=== PATIENT | male | born 1960 | race Caucasian/White ===

== ENCOUNTER → 2017-11-30 | Outpatient (CLI) | payer BC ==
--- NOTE | 2017-11-30 11:37 | KCIC ---
EXAM: MRI LEFT KNEE DATE: 11/30/2017 9:30 AM CLINICAL INDICATION: Medial left knee pain COMPARISON: None. TECHNIQUE: Multiplanar multisequence MR imaging of the left knee was performed without IV contrast. FINDINGS: Moderate left knee joint effusion. Small Mirza's cyst with edema extending inferiorly along the leg likely recent partial rupture. The ACL is intact. The PCL is intact. Moderate edema is seen about the MCL likely low-grade sprain or reactive from adjacent meniscal tear. The fibular collateral ligament, biceps femoris and IT band are intact. The popliteus tendon is normal in signal and morphology. Extensor mechanism is intact. Neutral patellar tracking. Medial meniscus: There is a radial tear at the body segment of the medial meniscus. Lateral meniscus: The lateral meniscus is intact. Full-thickness cartilage defect is seen at the weightbearing surface of the medial femoral condyle and medial tibial plateau measuring 7-8 mm in transverse dimension. Associated subchondral edema is seen within the medial femoral condyle and tibial plateau. Intermittent fissuring is seen within the patellar apex and lateral trochlea with small foci of subchondral edema. No fracture or AVN. Subchondral marrow edema is seen at the fibular head, suspect degenerative change although the cartilage is not well profiled. IMPRESSION: 1. Radial tear at the body of the medial meniscus. 2. Associated medial compartment degenerative changes chondral effacement and subchondral edema is seen. 3. MCL edema, likely reactive from adjacent meniscal tear/degenerative change. 4. Moderate left knee joint effusion. 5. Small Mirza's cyst with edema tracking inferiorly along the lower leg likely recent partial rupture. Electronically signed by: Blake Tran MD (11/30/2017 11:34 AM) [id number]
== END | disposition home or self-care (01) ==
LOC: KCIC MRI 09:10
PROVIDERS: ATTEND Orthopaedic Surgery
DX: S83.242A Other tear of medial meniscus, current injury, left knee, initial encounter (principal); M71.22 Synovial cyst of popliteal space [Baker], left knee; X58.XXXA Exposure to other specified factors, initial encounter; Y93.89 Activity, other specified; Y92.89 Other specified places as the place of occurrence of the external cause; Y99.2 Volunteer activity
CPT/HCPCS: 73721